=== PATIENT | female | born 1950 | race African-American/Black ===

== ENCOUNTER 2023-10-06 16:09 | Emergency (ER) | payer OTHER ==
[2023-10-06 16:36] VITALS: RESP 17; BMI 33.6
[2023-10-06 20:11] VITALS: BP 163/78; PULSE 67; TEMP 98.4
[2023-10-06] MEDS ORDERED: FLUORESCEIN NA 1 EA STRIP ONE (21:05)
[2023-10-06] MEDS ORDERED: TETRACAINE 0.5% OPHTH SOLN 2 ML BOTTLE ONE (21:06)
[2023-10-06] MEDS: TETRACAINE 0.5% OPHTH SOLN 2 ML BOTTLE OD ONE (22:08)
[2023-10-06] MEDS: FLUORESCEIN NA 1 EA STRIP OU ONE (22:08)
== END 2023-10-06 23:29 | disposition home or self-care (01) ==
LOC: JER 16:09
DX: H57.89 Other specified disorders of eye and adnexa (principal); R05.9 Cough, unspecified
CPT/HCPCS: 99283-25